=== PATIENT | male | born 1950 | race Caucasian/White ===

== ENCOUNTER 2020-02-22 10:12 | Emergency (ER) | payer MEDICARE, MEDICAID, SELFPAY ==
[2020-02-22 10:16] VITALS: BP 115/89; PULSE 99; RESP 16; TEMP 36.8; O2SAT 100; BMI 22.2
[2020-02-22 10:36] VITALS: O2SAT 100
--- NOTE | 2020-02-22 10:51 | XR_ITS ---
WS: [id number] PORTABLE CHEST HISTORY: dyspnea COMPARISON: 02/19/2017 Prior CABG. LEFT subclavian defibrillator. Hyperinflated lungs with changes of emphysema. Increasing opacification in the RIGHT lower lobe. Smal l bilateral pleural effusions. Cardiac size: Moderately enlarged cardiac silhouette. Mediastinum/Aorta: Mild atherosclerosis aorta. Osteopenia. XR/XR chest 1V portable [id number] IMPRESSION: 1. Chronic emphysema with developing RIGHT lower lobe pneumonitis or pneumonia . 2. Small bilateral pleural effusions. 3. Moderate cardiomegaly.
[2020-02-22 11:00] LABS: Basophils % 0.4 %; Eosinophils # 0.1 10^3/uL (0.0-0.8); Eosinophils % 0.6 %; Hematocrit 43.5 % (42.0-52.0); Hemoglobin 13.1 g/dL (11.7-16.6); Mean Corpuscular HGB Conc 30.1 g/dL (30.0-36.0); Mean Corpuscular Hemoglobin 28.8 pg (28.0-34.0); Mean Corpuscular Volume 95.6 fL (80-94); Mean Platelet Volume 12.3 fL (7.4-10.4); Monocytes # 1.1 10^3/uL (0.2-0.9); Monocytes % 11.1 %; Neutrophils # 7.62 10^3/uL (1.8-7.7); Neutrophils % 77.4 %; Nucleated Red Blood Cells % 0.2 %; Platelet Count 138 10^3/cmm (130-400); Red Blood Count 4.55 10^6/uL (4.1-5.3); White Blood Count 9.8 10^3/uL (4.0-10.0)
[2020-02-22 11:08] LABS: Alanine Aminotransferase 651 U/L (0-41); Albumin Level 4.4 g/dL (3.5-5.2); Alkaline Phosphatase 95 IU/L (40-130); Anion Gap 19.8 (5-19); Aspartate Amino Transferase 129 U/L (0-40); Blood Urea Nitrogen 36 mg/dL (8-23); Calcium 8.8 mg/dL (8.5-10.5); Carbon Dioxide 22 mmol/L (22-29); Chloride 99 mmol/L (98-107); Globulin 2.6 g/dL (1.3-4.6); Glomerular Filtration Rate 46.4 mL/min (90-130); Glucose 118 mg/dL (65-115); Osmolality Calculated 293 mOsm/kg (285-295); Potassium 3.8 mmol/L (3.5-5.1); Sodium 137 mmol/L (136-145)
--- NOTE | 2020-02-22 11:17 | W.ED.SOB ---
HPI - SOB/Dyspnea General: Chief Complaint: Shortness of Breath/Dyspnea Stated Complaint: SOB Time Seen by Provider: 02/22/20 10:28 History of Present Illness: HPI Narrative: 69-year-old male presents to the emergency room with difficulty with breathing. Patient has a history of congestive heart failure due to ischemic cardiomyopathy. He usually is on oxygen at 3 L by nasal cannula at home. On arrival here on 3 L he has been maintaining his sats in the mid to upper 90s. He did use 2 puffs of an albuterol inhaler as well as given been given terbutaline in the field his symptoms are mostly resolved. He has not had a fever had a few loose stools a few days ago. He has not noticed any worsening orthopnea. MD elicited complaint: shortness of breath and cough Pertinent past history: COPD and congestive heart failure Onset (ago): hour(s) Timing: constant Severity: moderate Exacerbating factors: exertion and coughing Relieving factors: oxygen, rest and bronchodilators Known history of: COPD and congestive heart failure Associated symptoms: Reports chest congestion, cough and orthopnea (Unchanged from baseline); Deny abdominal pain, chest pain, diaphoresis, dizziness, extremity pain, fever(s), hemoptysis, lightheadedness, myalgias, nausea, palpitations, paresthesias, polydipsia, polyuria, rash, sense of impending doom, syncope or vomiting Treatment prior to arrival: oxygen, bronchodilator and other (Steroids) Review of Systems Const: Denies: fever(s) or diaphoresis ENMT: Denies: throat pain, ear or mastoid pain, nasal discharge or nasal congestion Card: Reports: orthopnea (Unchanged from baseline); Denies: chest pain, palpitations, lightheadedness or syncope Resp: Reports: chest congestion; Denies: hemoptysis GI: Denies: abdominal pain, nausea or vomiting : Denies: flank pain, dysuria, urinary frequency or urinary urgency Musc: Denies: extremity pain Skin/Breast: Denies: rash or pruritus Neuro: Denies: dizziness Endo: Denies: polyuria or polydipsia PFS ED PFSH: Medical History Atrial fibrillation Combined systolic and diastolic congestive heart failure Coronary artery disease History of ST elevation myocardial infarction (STEMI) HTN (hypertension) ICD (implantable cardioverter-defibrillator) in place Ischemic cardiomyopathy Seizure disorder Sleep apnea Surgical History S/P appendectomy S/P CABG (coronary artery bypass graft) S/P hernia repair S/P PTCA (percutaneous transluminal coronary angioplasty) Family History Mother Cancer Other CAD (coronary artery disease) Social History Smoking and tobacco status: former smoker Second hand smoke exposure: Yes Alcohol intake: never History of recent travel: No Physical Exam Const: COMMON NORMALS: no acute distress GENERAL APPEARANCE: cooperative and comfortable ORIENTATION/CONSCIOUSNESS: Yes awake, Yes oriented to person, Yes oriented to place and Yes oriented to time HENMT: COMMON NORMALS: normocephalic, atraumatic and hearing grossly normal bilaterally HEAD & SCALP: normocephalic and atraumatic Neck/C-Spine: COMMON NORMALS: no JVD Resp: COMMON NORMALS: normal respiratory effort, No retractions, No use of accessory muscles and clear to auscultation bilaterally AUSCULTATION: clear to auscultation bilaterally Cardio: COMMON NORMALS: no JVD, regular rate, regular rhythm and No murmurs present (Cardio) RATE: regular rate RHYTHM: regular rhythm GI: COMMON NORMALS: Soft to palpation and No hepatosplenomegaly present AUSCULTATION: Yes normoactive bowel sounds PALPATION: Yes Soft to palpation, No Tenderness to palpation present (GI), No Guarding due to palpation present (GI) and Yes No hepatosplenomegaly present Extremity: COMMON NORMALS: normal to inspection, capillary refill normal, no clubbing, cyanosis or edema, no calf tenderness and no pedal edema Neuro: SENSORIUM/ORIENTATION: Yes oriented to person, Yes oriented to place and Yes oriented to time Skin: COMMON NORMALS: no rashes or lesions noted GENERAL SKIN EXAM: no rashes or lesions noted Course Vital Signs: Vital signs: Vital Signs Temperature 98.2 F 02/22/20 10:16 Pulse Rate 99 02/22/20 10:16 Respiratory Rate 16 02/22/20 10:16 Blood Pressure 115/89 02/22/20 10:16 Pulse Oximetry 100 02/22/20 10:36 MDM - SOB/Dyspnea MDM Narrative: Medical decision making narrative: Reviewing the work-up. Patient is actually hyper oxygenated on his current level will decrease that dose will start him on Levaquin as well as dexamethasone continue albuterol and we will set him up for telehealth/phone visit tomorrow for follow-up return to the emergency room if he has further problems. O2 sat monitor given to monitor his sats advised him to return if he is consistently below 90% Lab Data: Labs: Lab Results 02/22/20 02/22/20 02/22/20 Range/Units 09:35 09:35 11:45 WBC 9.8 (4.0-10.0) 10^3/ uL RBC 4.55 (4.1-5.3) 10^6/u L Hgb 13.1 (11.7-16.6) g/dL Hct 43.5 (42.0-52.0) % MCV 95.6 H (80-94) fL MCH 28.8 (28.0-34.0) pg MCHC 30.1 (30.0-36.0) g/dL RDW 18.0 H (12.1-15.1) % Plt Count 138 (130-400) 10^3/c mm MPV 12.3 H (7.4-10.4) fL Neut % (Auto) 77.4 % Lymph % (Auto) 10.0 % [place] % (Auto) 11.1 % Eos % (Auto) 0.6 % Baso % (Auto) 0.4 % Neut # (Auto) 7.62 (1.8-7.7) 10^3/u L Lymph # (Auto) 1.0 (0.8-4.8) 10^3/u L [place] # (Auto) 1.1 H (0.2-0.9) 10^3/u L Eos # (Auto) 0.1 (0.0-0.8) 10^3/u L Baso # (Auto) 0.0 (0.0-0.1) 10^3/u L Nucleated RBC % (a uto) 0.2 % Nucleated RBCs # 0.0 /100WBC Specimen Type Arterial Sample Site Radial, right ABG pH 7.44 (7.35-7.45) ABG pCO2 34.4 L (35-45) mmHg ABG pO2 172.0 H (80.0-100.0) mmH g ABG HCO3 23.3 (22-26) mmol/L ABG O2 Saturation > 100.0 ABG Base Excess -0.5 (-2.0-2.0) mmol/ L Kendrick Test Pos A-a O2 Gradient Not Reportable Hematocrit 37.8 L (42-52) % Hgb O2 Saturation 98.6 (95-100) % Carboxyhemoglobin 1.5 (0.4-20.1) %THgb Methemoglobin 0.5 (0.4-1.5) % Total Hemoglobin 12.3 L (14-18) g/dL Ionized Calcium 1.1 (1.1-1.4) mmol/L O2 Delivery Device Nc O2 Liters/Min 3.0 % Editorial Cartoonist ID Broma Sodium 137 137.0 (136-145) mmol/L Potassium 3.8 3.5 (3.5-5.1) mmol/L Chloride 99 (98-107) mmol/L Carbon Dioxide 22 (22-29) mmol/L Anion Gap 19.8 H (5-19) BUN 36 H (8-23) mg/dL Creatinine 1.5 H (0.7-1.2) mg/dL GFR Calculation 46.4 L (90-130) mL/min Glucose 118 H 118.0 H (65-115) mg/dL Calculated Osmolal ity 293 (285-295) mOsm/k g Calcium 8.8 (8.5-10.5) mg/dL Total Bilirubin 2.0 H (0.15-1.2) mg/dL AST 129 H (0-40) U/L ALT 651 H (0-41) U/L Alkaline Phosphata se 95 (40-130) IU/L Total Protein 7.0 (6.6-8.7) g/dL Albumin 4.4 (3.5-5.2) g/dL Globulin 2.6 (1.3-4.6) g/dL Discharge Plan Discharge Patient Disposition: Home Clinical Impression: Community acquired pneumonia, Congestive heart failure, Acute exacerbation of chronic obstructive airways disease, Atrial fibrillation, Ischemic cardiomyopathy Condition: Stable Prescriptions: New dexamethasone 6 mg tablet 6 mg PO DAILY Qty: 7 RF: 0 levofloxacin 750 mg tablet 750 mg PO DAILY 7 Days Qty: 7 RF: 0 No Action albuterol sulfate [ProAir HFA] 90 mcg/actuation HFA aerosol inhaler 2 puff INHALATION Q6H PRNRF: 0 simvastatin 40 mg tablet 40 mg PO QDAY RF: 0 mirtazapine 15 mg tablet 15 mg PO QDAY RF: 0 clopidogrel [Plavix] 75 mg tablet 75 mg PO QDAY RF: 0 nitroglycerin [Nitrostat] 0.4 mg tablet, sublingual 0.4 mg SUBLINGUAL DIRECTED RF: 0 furosemide [Lasix] 20 mg tablet 40 mg PO QAM RF: 0 potassium chloride [Klor-Con M20] 20 mEq tablet,ER particles/crystals 10 meq PO QDAY RF: 0 aspirin 325 mg tablet 325 mg PO DAILY RF: 0 budesonide-formoterol 160-4.5 mcg/actuation HFA aerosol inhaler 2 puff INHALATION BID RF: 0 Narcan 4 mg/actuation spray,non-aerosol 4 mg INTRANASAL Q2M RF: 0 hydrocodone-acetaminophen 5-325 mg tablet 1 tab PO BID PRNRF: 0 ondansetron HCl 4 mg tablet 4 mg PO Q6H RF: 0 metoprolol succinate 25 mg tablet extended release 24 hr 12.5 mg PO BID RF: 0 Discharge Orders: Discharge Order (Routine); Ordered 02/22/20 Ordered By: Omar Garcia Referrals: Earl Crow [Primary Care Provider] - Discharge Diet: Usual diet Discharge Activity: Resume usual activity Activity Restrictions/Additional Instructions: Monitor blood oxygen saturations at home with the finger monitor given you in the emergency room today if you are consistently below 90% return to the emergency room continue to wear your 3 L/min of nasal cannula oxygen daily. You were started on dexamethasone for 1 week as well as Levaquin. You should follow-up with the doctor either by telehealth or phone conversation tomorrow. Coding Level of Care Code ED Joinery Machinist for Krz[employer]zto[employer] Fwd Exam Comprehensive
[2020-02-22 12:00] LABS: ABG PCO2 34.4 mmHg (35-45); ABG PH Result 7.44 (7.35-7.45); Arterial Blood Gas Hematocrit 37.8 % (42-52); Base Excess ABG -0.5 mmol/L (-2.0-2.0); Blood Gas Allen Test Pos; Blood Gas Operator Identificat BROMA; Blood Gas Sample Site Radial, right; Blood Gas Sample Type Arterial; Carboxyhemoglobin 1.5 %THgb (0.4-20.1); HCO3 ABG 23.3 mmol/L (22-26); HGB O2 Sat 98.6 % (95-100); Ionized Calcium Level - ABG 1.1 mmol/L (1.1-1.4); Methemoglobin 0.5 % (0.4-1.5); Oxygen Device NC; Oxygen Saturation ABG > 100.0; Potassium Level - ABG 3.5 mmol/L (3.5-5.0); Total Hemoglobin 12.3 g/dL (14-18)
[2020-02-22 12:07] VITALS: BP 112/89; PULSE 91; O2SAT 99
[2020-02-24 14:43] LABS: Quest SARS-CoV-2 RNA NOT DETECTED (NOT DETECTED)
--- NOTE | 2020-02-25 16:26 | PC.NURSE ---
Pt called and notified of negative COVID result.
== END 2020-02-22 12:56 | disposition home or self-care (01) ==
PROVIDERS: Emergency Provider Family Medicine; PCP Family Medicine
DX: J44.0 Chronic obstructive pulmonary disease with (acute) lower respiratory infection (principal); J16.8 Pneumonia due to other specified infectious organisms; J44.1 Chronic obstructive pulmonary disease with (acute) exacerbation; I11.0 Hypertensive heart disease with heart failure; I50.9 Heart failure, unspecified; I48.91 Unspecified atrial fibrillation; I25.5 Ischemic cardiomyopathy; Z79.02 Long term (current) use of antithrombotics/antiplatelets; Z79.82 Long term (current) use of aspirin; Z87.891 Personal history of nicotine dependence; I25.10 Atherosclerotic heart disease of native coronary artery without angina pectoris; I25.2 Old myocardial infarction; Z95.1 Presence of aortocoronary bypass graft
CPT/HCPCS: 12345; 36600; 71045; 80051; 80053; 82810; 83986; 85025; 87635; 99283

== ENCOUNTER 2020-03-22 20:52 | Inpatient (IN) | payer MEDICARE, MEDICAID, SELFPAY ==
--- NOTE | 2020-03-22 20:54 | XR_ITS ---
WS: [id number] XR chest 1V portable [id number] REASON FOR EXAM: cp FINDINGS: Compared to the previous examination of 02/22/2020, the findings of chronic congestive heart failure s een with fluid in the minor fissure, bilateral pleural effusions, and Patti B lines. The infiltrative process seen in the periphery of the right lower lung field is resolving. No new findings. XR/XR chest 1V portable [id number] IMPRESSION: Chronic congestive heart failure with resolving right lower lobe infiltrate.
--- NOTE | 2020-03-22 20:55 | ECG_ITS ---
[facility] Test Date: 2020-03-22 Pat Name: Nolan Jurado Department: Room: 107 Gender: Male Heat Treat Technician: : 1950 Requested By: Petros Davis Order Number: [id number] Reading MD: SHANELLE MCLAUGHLIN Measurements Intervals [place] Rate: 115 P: 34 CA: 145 QRS: 62 QRSD: 110 T: 161 QT: 355 QTc: 491 Interpretive Statements SINUS TACHYCARDIA POSSIBLE LEFT ATRIAL ENLARGEMENT [-0.1mV P WAVE IN V1/V2] MINIMAL ST DEPRESSION [0.025+ mV ST DEPRESSION] ABNORMAL QRS-T ANGLE [QRS-T AXIS DIFFERENCE > 60] Compared to ECG 01/26/2017 18:20:20 ST (T wave) deviation now present Sinus rhythm no longer present Intraventricular conduction delay no longer present Electronically Signed On 03-23-2020 19:29:18 QUARRY PLUG AND FEATHER DRILLER by SHANELLE MCLAUGHLIN [id number]
[2020-03-22 20:56] VITALS: BP 115/89; PULSE 115; RESP 20; TEMP 37.1; O2SAT 100; BMI 21.5
[2020-03-22 21:00] VITALS: PULSE 122; RESP 18; O2SAT 99
--- NOTE | 2020-03-22 21:15 | ED_ITS ---
HPI - SOB/Dyspnea General: Chief Complaint: Shortness of Breath/Dyspnea Stated Complaint: d/a chest pain Time Seen by Provider: 03/22/20 20:53 Source: patient Mode of arrival: ambulatory Limitations: no limitations History of Present Illness: HPI Narrative: 69-year-old male who is a direct admit from [facility]. In route EMS stated he started having chest pain shortness of breath. The ER. Patient states he feels much improved currently no longer has any chest pain at this time. Does have a extensive history of congestive heart failure is edematous. Patient denies any vomiting or diarrhea. Associated symptoms: Reports chest pain; Deny abdominal pain, fever(s), nausea or vomiting Review of Systems Const: Denies: fever(s), chills, body aches or change in appetite Eyes: Denies: blurry vision or eye discomfort ENMT: Denies: throat pain or dental pain Card: Reports: chest pain Resp: Reports: dyspnea GI: Denies: abdominal pain, nausea, vomiting or diarrhea : Denies: dysuria Musc: Denies: neck pain or back pain Skin/Breast: Denies: rash Neuro: Denies: headache(s) Psych: Denies: depression Remigio/Lymph: Denies: easy bruising All/Imm: Denies: urticaria PFSH ED PFSH: Medical History Atrial fibrillation Combined systolic and diastolic congestive heart failure Coronary artery disease History of ST elevation myocardial infarction (STEMI) HTN (hypertension) ICD (implantable cardioverter-defibrillator) in place Ischemic cardiomyopathy Seizure disorder Sleep apnea Surgical History S/P appendectomy S/P CABG (coronary artery bypass graft) S/P hernia repair S/P PTCA (percutaneous transluminal coronary angioplasty) Family History Mother Cancer Other CAD (coronary artery disease) Social History Smoking and tobacco status: former smoker Second hand smoke exposure: Yes Alcohol intake: never History of recent travel: No Physical Exam Const: COMMON NORMALS: no acute distress, patient oriented x3 and healthy appearing HENMT: COMMON NORMALS: normocephalic and atraumatic HEAD & SCALP: normocephalic and atraumatic Eye: COMMON NORMALS: Equal, round and reactive pupils present and EOMs intact bilaterally PUPIL: Yes Equal, round and reactive pupils present Neck/C-Spine: COMMON NORMALS: full ROM and supple Chest: COMMONS NORMALS: normal inspection of the chest and normal palpation of entire chest wall Resp: COMMON NORMALS: normal respiratory effort, No retractions, No use of accessory muscles and clear to auscultation bilaterally AUSCULTATION: clear to auscultation bilaterally Cardio: COMMON NORMALS: regular rate, regular rhythm and No murmurs present (Cardio) RATE: regular rate RHYTHM: regular rhythm GI: COMMON NORMALS: Normal to inspection, nondistended, normoactive bowel sounds present, Soft to palpation, non-tender and no masses PALPATION: Yes Soft to palpation Extremity: COMMON NORMALS: normal to inspection and full ROM NARRATIVE EXTREMITY EXAM: 2+ edema Neuro: COMMON NORMALS: patient oriented x3, moves all extremities and no focal motor deficits Psych: COMMON NORMALS: mental status grossly normal, Normal thought process present and cooperative THOUGHT PROCESS: Normal thought process present Skin: COMMON NORMALS: no rashes or lesions noted and no wounds GENERAL SKIN EXAM: no rashes or lesions noted Course Vital Signs: Vital signs: Vital Signs Temperature 98.8 F 03/22/20 20:56 Pulse Rate 115 H 03/22/20 20:56 Respiratory Rate 20 H 03/22/20 20:56 Blood Pressure 115/89 03/22/20 20:56 Pulse Oximetry 100 03/22/20 20:56 MDM - SOB/Dyspnea EKG Data^: EKG 1: Attestation: I personally reviewed and interpreted this EKG as follows: EKG Interpretation Date: 03/22/20 EKG interpretation time: 20:53 Interpretation: sinus tach hr [address] or t wave abnormalities qrs 110 qtc 423 Discharge Plan Discharge Prescriptions: No Action albuterol sulfate [ProAir HFA] 90 mcg/actuation HFA aerosol inhaler 2 puff INHALATION Q6H PRNRF: 0 simvastatin 40 mg tablet 40 mg PO QDAY RF: 0 mirtazapine 15 mg tablet 15 mg PO QDAY RF: 0 clopidogrel [Plavix] 75 mg tablet 75 mg PO QDAY RF: 0 nitroglycerin [Nitrostat] 0.4 mg tablet, sublingual 0.4 mg SUBLINGUAL DIRECTED RF: 0 furosemide [Lasix] 20 mg tablet 40 mg PO QAM RF: 0 potassium chloride [Klor-Con M20] 20 mEq tablet,ER particles/crystals 10 meq PO QDAY RF: 0 aspirin 325 mg tablet 325 mg PO DAILY RF: 0 budesonide-formoterol 160-4.5 mcg/actuation HFA aerosol inhaler 2 puff INHALATION BID RF: 0 Narcan 4 mg/actuation spray,non-aerosol 4 mg INTRANASAL Q2M RF: 0 hydrocodone-acetaminophen 5-325 mg tablet 1 tab PO BID PRNRF: 0 ondansetron HCl 4 mg tablet 4 mg PO Q6H RF: 0 metoprolol succinate 25 mg tablet extended release 24 hr 12.5 mg PO BID RF: 0 dexamethasone 6 mg tablet 6 mg PO DAILY Qty: 7 RF: 0 Coding Level of Care Code ED All Terrain Vehicle Technician for [place]ly[place] Fwd Exam Comprehensive
[2020-03-22 22:00] VITALS: PULSE 120; RESP 22; O2SAT 98
--- NOTE | 2020-03-22 22:28 | P.HP_ITS ---
Providers/Chief Complaint Primary Care Provider: Earl Crwo Chief Complaint: d/a chest pain History of Present Illness Nolan Jurado is a 69 year old male with a past medical history of CAD status post CABG, history of ICD placement, history of ischemic cardiomyopathy, mixed systolic and diastolic heart failure, last ejection fraction 30%, COPD, former smoker hypertension, hyperlipidemia, bilateral lower extremity edema, paroxysmal atrial fibrillation not on anticoagulation, sleep apnea, who presents to [facility] as a transfer from [facility] for complaints of shortness of breath. Patient states that for the last 2 weeks, he has felt more short of breath, short of breath with minimal exertion, productive cough, complains of bilateral lower extremity edema, orthopnea, paroxysmal nocturnal dyspnea, has been using Lasix 40 mg daily, also complains of chest pain with exertion, substernal, nonradiating, no fevers, no chills, no nausea, no vomiting, no known exposure to COVID-19. Review of Systems Const: Denies: fever(s), chills, fatigue or malaise Eyes: Denies: change in vision or blurry vision ENMT: Denies: nasal congestion Card: Reports: chest pain Resp: Reports: dyspnea and non-productive cough; Denies: productive cough or wheezing GI: Denies: abdominal pain, nausea, vomiting, hematemesis, diarrhea, constipation, hematochezia or melena : Denies: flank pain, difficulty urinating, dysuria or urinary frequency Musc: Denies: neck pain or back pain Skin/Breast: Denies: rash Neuro: Denies: headache(s), dizziness or vertigo Psych: Denies: anxiety or depression Endo: Denies: polyuria or polydipsia Medications/Allergies Home Medications Medication Instructions Recorded Confirmed Last Taken Type albuterol sulfate 90 mcg/actuation 2 puff INHALATION Q6H PRN 06/14/19 12/12/19 Unknown History aerosol inhaler clopidogrel 75 mg tablet 75 mg PO QDAY 06/14/19 12/12/19 Unknown History mirtazapine 15 mg tablet 15 mg PO QDAY 06/14/19 12/12/19 Unknown History nitroglycerin 0.4 mg sublingual 0.4 mg SUBLINGUAL DIRECTED tab 06/14/19 12/12/19 Unknown History tablet simvastatin 40 mg tablet 40 mg PO QDAY 06/14/19 12/12/19 Unknown History aspirin 325 mg tablet 325 mg PO DAILY 09/30/19 12/12/19 Unknown History budesonide-formoterol HFA 160 2 puff INHALATION BID 09/30/19 12/12/19 Unknown History mcg-4.5 mcg/actuation aerosol inhaler furosemide 20 mg tablet 40 mg PO QAM tab 09/30/19 12/12/19 Unknown History hydrocodone 5 mg-acetaminophen 325 1 tab PO BID PRN 09/30/19 12/12/19 Unknown History mg tablet metoprolol succinate 25 mg 12.5 mg PO BID tab 09/30/19 12/12/19 Unknown History tablet,extended release 24 hr naloxone 4 mg/actuation nasal spray 4 mg INTRANASAL Q2M 09/30/19 12/12/19 Unknown History ondansetron HCl 4 mg tablet 4 mg PO Q6H 09/30/19 12/12/19 Unknown History potassium chloride 20 mEq 10 meq PO QDAY tab 09/30/19 12/12/19 Unknown History tablet,extended release(part/cryst) dexamethasone 6 mg PO DAILY #7 tab 02/22/20 Unknown Rx Allergies Allergy/AdvReac Type Severity Reaction Status Date / Time No Known Allergies Allergy Unverified 06/14/19 09:54 PFSH Acute PFSH: Medical History Atrial fibrillation Combined systolic and diastolic congestive heart failure Coronary artery disease History of ST elevation myocardial infarction (STEMI) HTN (hypertension) ICD (implantable cardioverter-defibrillator) in place Ischemic cardiomyopathy Seizure disorder Sleep apnea Surgical History S/P appendectomy S/P CABG (coronary artery bypass graft) S/P hernia repair S/P PTCA (percutaneous transluminal coronary angioplasty) Family History Mother Cancer Other CAD (coronary artery disease) Social History Smoking and tobacco status: former smoker Second hand smoke exposure: Yes Alcohol intake: never History of recent travel: No Vitals/I&O/Wt Last Vital Signs Temp 98.8 F 03/22/20 20:56 Pulse 115 H 11/05/20 20:56 Resp 20 H 03/22/20 20:56 BP 115/89 03/22/20 20:56 Pulse Ox 100 03/22/20 20:56 Weight last 48 hrs Weight 68.039 kg Physical Exam Const: COMMON NORMALS: no acute distress and patient oriented x3 GENERAL APPEARANCE: cooperative and comfortable HENMT: COMMON NORMALS: normocephalic HEAD & SCALP: normocephalic Eye: COMMON NORMALS: Equal, round and reactive pupils present and EOMs intact bilaterally GENERAL EYE: appearance normal, both eyes and all related structures PUPIL: Yes Equal, round and reactive pupils present Neck/C-Spine: COMMON NORMALS: full ROM, no lymphadenopathy, no JVD and Thyroid normal THYROID: Thyroid normal Lymph: LYMPHATIC: no lymphadenopathy noted Resp: COMMON NORMALS: normal respiratory effort, No retractions, No use of accessory muscles and clear to auscultation bilaterally AUSCULTATION: clear to auscultation bilaterally Cardio: COMMON NORMALS: no JVD, regular rate, regular rhythm, S1 normal heart sound present, S2 normal heart sound present, No gallops present (Cardio), No clicks present (Cardio) and No murmurs present (Cardio) RATE: regular rate RHYTHM: regular rhythm HEART SOUNDS: S1 normal heart sound present and S2 normal heart sound present GI: COMMON NORMALS: Normal to inspection, nondistended, normoactive bowel sounds present, Soft to palpation, non-tender and No hepatosplenomegaly present PALPATION: Yes Soft to palpation and Yes No hepatosplenomegaly present Extremity: COMMON NORMALS: normal to inspection and full ROM NARRATIVE EXTREMITY EXAM: 3+ pitting edema Neuro: COMMON NORMALS: patient oriented x3, CN's II-XII intact bilaterally, moves all extremities and no focal motor deficits Psych: COMMON NORMALS: mental status grossly normal, Normal thought process present and cooperative THOUGHT PROCESS: Normal thought process present Data : 03/22/20 22:15 03/22/20 22:15 A&P Assessment and plan (1) Combined systolic and diastolic congestive heart failure: -Has a history of ischemic ischemic cardiomyopathy, mixed systolic and diastolic, last EF 30% -, No pulmonary emboli -Has received a total of [address] angiogram of the chest and chest x- ray from outside hospital showed pulmonary edema PLAN: -Admit to cardiac stepdown unit -Telemetry monitoring -Monitor creatinine, continue Lasix 40 mg IV twice daily, fluid restrictions, daily weights -We will order cardiac echocardiogram Status: Acute (2) COPD (chronic obstructive pulmonary disease): -3 L oxygen dependent -Continue ipratropium every 6 hours scheduled -Continue Solu-Medrol 40 every 12 hours Status: Acute (3) ICD (implantable cardioverter-defibrillator) in place: Status: Acute (4) Atrial fibrillation: -Paroxysmal atrial fibrillation, not on anticoagulation, telemetry monitoring ordered Status: Acute (5) Pneumonia: -CT angiogram showed findings concerning for left lower lobe pneumonia, white blood cell 12.6, Covid PCR sent, influenza negative -Continue Rocephin and azithromycin -Blood cultures, sputum cultures Status: Acute (6) NSTEMI (non-ST elevated myocardial infarction): -Has complaints of chest pain -Troponin at [facility] was 65, 2 hour 57, EKG at their facility showed sinus tachycardia, in the ambulance ride over, there was some concerns for an abnormal heart rhythm, seem like sinus tachycardia to me, EKG went he arrived in the emergency room showed some ST depressions in the lateral leads, no active chest pain PLAN: -Continue aspirin, statin -Serial EKGs, serial troponins, telemetry monitoring, monitor for EKGs, ordered cardiac echocardiogram Status: Acute (7) Hypertension: Status: Acute (8) Hyperlipidemia: Status: Acute Attestations Medical Necessity Statement*: Patient requires hospitalization, inpatient, greater than 2 midnights, for systolic diastolic heart failure exacerbation, pneumonia, COPD exacerbation Coding Level of Care Code Acute Franchise Manager for [facility] Diagnoses Combined systolic and diastolic congestive heart failure I50.40 COPD (chronic obstructive pulmonary disease) J44.9 ICD (implantable cardioverter-defibrillator) in place Z95.810 Atrial fibrillation I48.91 Pneumonia J18.9 NSTEMI (non-ST elevated myocardial infarction) I21.4 Hypertension I10 Hyperlipidemia E78.5
[2020-03-22 22:32] LABS: Basophils % 0.1 %; Eosinophils % 0.2 %; Hematocrit 42.1 % (42.0-52.0); Hemoglobin 12.2 g/dL (11.7-16.6); Lymphocytes # 0.9 10^3/uL (0.8-4.8); Lymphocytes % 7.7 %; Mean Corpuscular Hemoglobin 26.9 pg (28.0-34.0); Mean Corpuscular Volume 92.9 fL (80-94); Mean Platelet Volume 9.9 fL (7.4-10.4); Monocytes # 1.1 10^3/uL (0.2-0.9); Monocytes % 9.7 %; Neutrophils # 8.97 10^3/uL (1.8-7.7); Neutrophils % 81.8 %; Nucleated Red Blood Cells % 0.4 %; Platelet Count 198 10^3/cmm (130-400); Red Blood Count 4.53 10^6/uL (4.1-5.3); Red Cell Distribution Width 18.4 % (12.1-15.1)
[2020-03-22 22:53] VITALS: BP 100/73; PULSE 104; RESP 23; O2SAT 100
[2020-03-22 22:53] LABS: Troponin(5th) Baseline 59 ng/L (0-15)
--- NOTE | 2020-03-22 22:55 | ECG_ITS ---
[facility] Test Date: 2020-03-22 Pat Name: Nolan Jurado Department: Room: 107 Gender: Male Sedimentationist: : 1950 Requested By: Petros Davis Order Number: [id number] Reading MD: SHANELLE MCLAUGHLIN Measurements Intervals [place] Rate: 106 P: 73 MD: 154 QRS: 77 QRSD: 110 T: 180 QT: 374 QTc: 497 Interpretive Statements SINUS TACHYCARDIA WITH OCCASIONAL VENTRICULAR PREMATURE COMPLEXES LEFT ATRIAL ENLARGEMENT [-0.15mV P WAVE IN V1/V2] NONSPECIFIC ST & T-WAVE ABNORMALITY Compared to ECG 01/26/2017 18:20:20 Ventricular premature complex(es) now present T-wave abnormality now present Sinus rhythm no longer present Intraventricular conduction delay no longer present Electronically Signed On 03-23-2020 19:33:43 MATERIAL CLERK by SHANELLE MCLAUGHLIN [id number]
[2020-03-22 23:03] LABS: Magnesium 2.4 mg/dL (1.7-2.3); NT Pro B Type Natriuretic Pept 31539 pg/mL (0-125); Phosphorus 3.4 mg/dL (2.5-4.5)
[2020-03-22 23:22] VITALS: PULSE 76; RESP 29
[2020-03-22 23:27] LABS: Alanine Aminotransferase 31 U/L (0-41); Albumin Level 3.3 g/dL (3.5-5.2); Alkaline Phosphatase 113 IU/L (40-130); Aspartate Amino Transferase 38 U/L (0-40); Blood Urea Nitrogen 37 mg/dL (8-23); Calcium 8.9 mg/dL (8.5-10.5); Carbon Dioxide 22 mmol/L (22-29); Chloride 99 mmol/L (98-107); Globulin 2.7 g/dL (1.3-4.6); Glucose 103 mg/dL (65-115); Osmolality Calculated 291 mOsm/kg (285-295); Sodium 136 mmol/L (136-145); Total Bilirubin 1.9 mg/dL (0.15-1.2)
--- NOTE | 2020-03-22 23:31 | PC.NURSE ---
Patient received from ED via stretcher. Transferred patient to bed x2 assist. Patient tolerated fair. Patient becomes very SOB with any exertion. Noted patient to have blanchable redness to sacrum. Positioned for comfort. Patient requesting to remain in semi-dumont's position for ease of breathing. Patient stated, I want to go to sleep but I am afraid I will wake up starving for air. Patient reports using cpap with oxygen at home. Informed Dr Weaver of patient fear and use of cpap. Order received to initiate cpap with home settings for now. Spoke with David in respiratory and informed her of new order. Admission completed as documented.
[2020-03-22 23:34] LABS: Anion Gap 19.3 (5-19); Potassium 4.3 mmol/L (3.5-5.1)
[2020-03-22 23:45] VITALS: PULSE 120; RESP 28; O2SAT 98
[2020-03-23] VITALS (7 sets, daily range): BP systolic 93–116; BP diastolic 27–94; PULSE 109–173; RESP 0–32; O2SAT 66–100
--- NOTE | 2020-03-23 00:07 | PC.NURSE ---
report to [facility] for telemetry floor
[2020-03-23 00:09] LABS: Procalcitonin 0.97 ng/mL (0-0.5)
[2020-03-23] MEDS: atorvastatin 40 mg Tablet PO (00:37)
[2020-03-23] MEDS: aspirin 81 mg EC Tablet PO (00:37)
[2020-03-23] MEDS: mirtazapine 15 mg Tablet PO (00:37)
[2020-03-23] MEDS: clopidogrel 75 mg Tablet PO (00:37)
[2020-03-23] MEDS: cefTRIAXone 1,000 MG in sodium chloride 0.9% (plus) 50 ML 100 MG IV (00:38)
[2020-03-23] MEDS: azithromycin 500 MG in sodium chloride 0.9% 250 ML 250 MG IV (01:37)
[2020-03-23] MEDS: ondansetron 2 mg/ML SDV 2 mL 4 MG IVP (02:10)
--- NOTE | 2020-03-23 02:14 | PC.NURSE ---
Patient c/o right wrist IV painful with flush. No sign of infiltration observed. Flushed left AC IV and patient c/o pain and burning to that site as well. Did observed some infiltration to the left ac. Both IV removed. Initiated new IV to right forearm 22g. Flushes well. Patient denies pain to site at this time and tolerated insertion well.
[2020-03-23 02:42] LABS: Bilirubin Urine Neg (Negative); Blood Urine Neg (Negative); Glucose Urine UA Norm (Normal); Ketones Urine Negative (Negative); Leukocyte Esterase Urine Negative (Negative); Nitrate Urine Negative (Negative); Protein Urine Neg (Negative); Specific Gravity, Urine 1.015 (1.005-1.030); Urine Appearance Clear (CLEAR); Urine Color Yellow (Yellow); Urobilinogen Urine 1 mg/dL (Negative)
[2020-03-23 02:43] LABS: Add Urine Culture? No; Add Urine Microscopic? YES; Bacteria Urine TRACE /hpf; WBC Urine 0-4 /hpf (0-5)
[2020-03-23] MEDS: FUROsemide 10 mg/mL SDV 4mL 40 MG IVP (02:50)
--- NOTE | 2020-03-23 03:52 | PC.NURSE ---
0235. Patient c/o not being able to breathe. Patient had oxymask at 5L with SpO2 of 100% heart rate 100. Informed David in RT. David in to see patient. 0237 Patient heart increased to 130-140. Patient c/o difficulty breathing with respirations at 30-35. Patient oxymask increased to 10L with SpO2 remaining at 100% Informed Dr Weaver at this time. While on the phone with doctor heart rate decreased back to 100, respirations remained in the 30s. Received order for Lasix 40mg IVP once. 0247 Patient c/o air hunger and unable to breathe stating I am hot and I can't breathe . Decreased room temperature. David RT in room. Patient breathing becoming more labored. Texting Dr Weaver at this time requesting assistance with air hunger. Also texted doctor at this time that rapid response was going to be called. While calling [id number], Dr Weaver enters room. Patient stopped breathing. Patient has pulse at this time. 0248 Rapid response called. 0250 Code blue called. Code team arrived and assumed care of patient. See Code paperwork for team information. Patient was coded for ~40min before TOD was called.
--- NOTE | 2020-03-23 04:43 | ED_ITS ---
HPI - SOB/Dyspnea General: Chief Complaint: Shortness of Breath/Dyspnea Stated Complaint: d/a chest pain Time Seen by Provider: 03/22/20 20:53 Source: patient Mode of arrival: ambulatory Limitations: no limitations History of Present Illness: HPI Narrative: I was called to the floor for a CODE BLUE called overhead. Upon arrival Dr. Weaver was present and was running the code. I remained to perform procedures as the code was directed by Dr. Weaver. Related Data: Home oxygen amount: 3 liters [facility] ED PFSH: Medical History (Updated 03/22/20 @ 22:36 by Daryl Weaver MD) Atrial fibrillation Combined systolic and diastolic congestive heart failure Coronary artery disease History of ST elevation myocardial infarction (STEMI) HTN (hypertension) Hyperlipidemia Hypertension ICD (implantable cardioverter-defibrillator) in place Ischemic cardiomyopathy COLEMAN (obstructive sleep apnea) Seizure disorder Sleep apnea Surgical History S/P appendectomy S/P CABG (coronary artery bypass graft) S/P hernia repair S/P PTCA (percutaneous transluminal coronary angioplasty) Family History Mother Cancer Other CAD (coronary artery disease) Social History Smoking and tobacco status: former smoker Second hand smoke exposure: Yes Alcohol intake: never History of recent travel: No Procedures Central Line Placement Right Femoral: Patient Placed on Monitor/Pulse Ox: Yes Central Line Prep: Povidone-Iodine 1% Central Line Lumen Inserted: triple Post Procedure: sutured in place, good blood return, all ports aspirated, flushed, capped and sterile dressing applied Patient Tolerated Procedure: well and no complications Complications: none Additional Comments: Procedure was performed while the patient had cardiac arrest. Maximal sterile precautions were taken given the situation. Intubation paralytic: Succinylcholine Mg Given: 100 Laryngoscope: Wilberto ET Tube Size: 8 ET Tube Uncuffed: Yes Tube Secured Depth (cm): 22 Tube Secured Location: teeth Tube Placement Confirmation: visualized tube passing through cords, equal breath sounds bilaterally, no breath sounds over epigastrium and confirmation by capnometry Patient Tolerated Procedure: well and no complications Intubation Complications: none Additional Comments: Intubation was performed during a brief period where the patient had a pulse and necessitated succinylcholine as he was biting down. Course Vital Signs: Vital signs: Vital Signs Temperature 98.8 F 03/22/20 20:56 Pulse Rate 120 H 03/23/20 00:05 Respiratory Rate 20 H 03/23/20 00:05 Blood Pressure 102/74 03/23/20 00:05 Pulse Oximetry 98 03/23/20 00:05 MDM - SOB/Dyspnea Lab Data: Labs: Lab Results 03/22/20 03/22/20 03/22/20 Range/Units 22:15 22:15 22:15 WBC 11.0 H (4.0-10.0) 10^3/ uL RBC 4.53 (4.1-5.3) 10^6/u L Hgb 12.2 (11.7-16.6) g/dL Hct 42.1 (42.0-52.0) % MCV 92.9 (80-94) fL MCH 26.9 L (28.0-34.0) pg MCHC 29.0 L (30.0-36.0) g/dL RDW 18.4 H (12.1-15.1) % Plt Count 198 (130-400) 10^3/c mm MPV 9.9 (7.4-10.4) fL Neut % (Auto) 81.8 % Lymph % (Auto) 7.7 % Dickenson % (Auto) 9.7 % Eos % (Auto) 0.2 % Baso % (Auto) 0.1 % Neut # (Auto) 8.97 H (1.8-7.7) 10^3/u L Lymph # (Auto) 0.9 (0.8-4.8) 10^3/u L Dickenson # (Auto) 1.1 H (0.2-0.9) 10^3/u L Eos # (Auto) 0.0 (0.0-0.8) 10^3/u L Baso # (Auto) 0.0 (0.0-0.1) 10^3/u L Nucleated RBC % (a uto) 0.4 % Nucleated RBCs # 0.0 /100WBC Sodium 136 (136-145) mmol/L Potassium 4.3 (3.5-5.1) mmol/L Chloride 99 (98-107) mmol/L Carbon Dioxide 22 (22-29) mmol/L Anion Gap 19.3 H (5-19) BUN 37 H (8-23) mg/dL Creatinine 1.2 (0.7-1.2) mg/dL GFR Calculation 60.0 L (90-130) mL/min Glucose 103 (65-115) mg/dL Calculated Osmolal ity 291 (285-295) mOsm/k g Calcium 8.9 (8.5-10.5) mg/dL Phosphorus (2.5-4.5) mg/dL Magnesium (1.7-2.3) mg/dL Total Bilirubin 1.9 H (0.15-1.2) mg/dL AST 38 (0-40) U/L ALT 31 (0-41) U/L Alkaline Phosphata se 113 (40-130) IU/L Troponin T Baselin e 59 H (0-15) ng/L NT-Pro-B Natriuret Pep (0-125) pg/mL Total Protein 6.0 L (6.6-8.7) g/dL Albumin 3.3 L (3.5-5.2) g/dL Globulin 2.7 (1.3-4.6) g/dL Procalcitonin (0-0.5) ng/mL 03/22/20 03/22/20 Range/Units 22:15 22:20 WBC (4.0-10.0) 10^3/ uL RBC (4.1-5.3) 10^6/u L Hgb (11.7-16.6) g/dL Hct (42.0-52.0) % MCV (80-94) fL MCH (28.0-34.0) pg MCHC (30.0-36.0) g/dL RDW (12.1-15.1) % Plt Count (130-400) 10^3/c mm MPV (7.4-10.4) fL Neut % (Auto) % Lymph % (Auto) % Dickenson % (Auto) % Eos % (Auto) % Baso % (Auto) % Neut # (Auto) (1.8-7.7) 10^3/u L Lymph # (Auto) (0.8-4.8) 10^3/u L Dickenson # (Auto) (0.2-0.9) 10^3/u L Eos # (Auto) (0.0-0.8) 10^3/u L Baso # (Auto) (0.0-0.1) 10^3/u L Nucleated RBC % (a uto) % Nucleated RBCs # /100WBC Sodium (136-145) mmol/L Potassium (3.5-5.1) mmol/L Chloride (98-107) mmol/L Carbon Dioxide (22-29) mmol/L Anion Gap (5-19) BUN (8-23) mg/dL Creatinine (0.7-1.2) mg/dL GFR Calculation (90-130) mL/min Glucose (65-115) mg/dL Calculated Osmolal ity (285-295) mOsm/k g Calcium (8.5-10.5) mg/dL Phosphorus 3.4 (2.5-4.5) mg/dL Magnesium 2.4 H (1.7-2.3) mg/dL Total Bilirubin (0.15-1.2) mg/dL AST (0-40) U/L ALT (0-41) U/L Alkaline Phosphata se (40-130) IU/L Troponin T Baselin e (0-15) ng/L NT-Pro-B Natriuret Pep 56331 H (0-125) pg/mL Total Protein (6.6-8.7) g/dL Albumin (3.5-5.2) g/dL Globulin (1.3-4.6) g/dL Procalcitonin 0.97 H (0-0.5) ng/mL Discharge Plan Discharge Patient Disposition: Admitted As Inpatient Admit Provider: Daryl Weaver Discharge Date/Time: 03/22/20 23:02 Coding Level of Care Code ED Boiler Coverer Helper for Krzysztof Casey
[2020-03-23 04:56] LABS: Glucose Point of Care 111 mg/dL (70-110)
--- NOTE | 2020-03-23 04:57 | PC.RESP ---
At 0247 I enter pt's room. PT's RR 51, SaO2 was 99%. Pt stated he can't breathe and needs a breathing tx. I left to go get his albuterol neb tx. Upon entering room, pt appeared pale, agonal breathing, and unable to arose. Dr. Ramirez is in room. Called a code. Code teams arrives and CPR initiated.
--- NOTE | 2020-03-23 14:35 | PC.NURSE ---
This functional tester typewriters gave patient belongings to Zahra Chapman, items included were clothes, shoes, wallet. Spoke with risk management and they stated to release items to her as she was listed on patients facesheet.
--- NOTE | 2020-03-27 09:15 | P.DES_ITS ---
Discharge Providers DDS Date of Admission: 03/22/20 22:32 Date Summary Completed: 04/02/20 Attending Provider at Admission: Daryl Weaver MD Time of : 03:32 Attending Provider at Discharge: Daryl Weaver MD Primary Care Provider: Earl NUNES Diagnoses Hospital Diagnoses (1) Combined systolic and diastolic congestive heart failure: (2) COPD (chronic obstructive pulmonary disease): (3) ICD (implantable cardioverter-defibrillator) in place: (4) Atrial fibrillation: (5) Pneumonia: (6) NSTEMI (non-ST elevated myocardial infarction): (7) Hypertension: (8) Hyperlipidemia: Reason for Visit Reason for Visit: d/a chest pain Summary Date and Time of Date of : 03/23/20 Time of : 03:32 Summary Summary: Nolan Jurado is a 69 year old male with a past medical history of CAD status post CABG, history of ICD placement, history of ischemic cardiomyopathy, mixed systolic and diastolic heart failure, last ejection fraction 30%, COPD, former smoker hypertension, hyperlipidemia, bilateral lower extremity edema, paroxysmal atrial fibrillation not on anticoagulation, sleep apnea, who presents to [facility] as a transfer from [facility] for complaints of shortness of breath. Patient states that for the last 2 weeks, he has felt more short of breath, short of breath with minimal exertion, productive cough, complains of bilateral lower extremity edema, orthopnea, paroxysmal nocturnal dyspnea, has been using Lasix 40 mg daily, also complains of chest pain with exertion, substernal, nonradiating, no fevers, no chills, no nausea, no vomiting, no known exposure to COVID-19. Patient was admitted for acute respiratory failure secondary to acute systolic and diastolic CHF exacerbation and COPD exacerbation, receiving Lasix therapy, echocardiogram, fluid restrictions, daily weights, oxygen therapy, Solu-Medrol 40 every 12 hours, ipratropium, and for his NSTEMI serial troponin monitoring, monitoring his EKGs, monitoring for chest pain. Patient[place] BNP was 11626, creatinine 1.2, baseline troponin 59, EKG showed sinus tachycardia, nonspecific ST-T wave changes. During my examination, patient's breathing had improved, no chest pain, no lightheaded, no dizziness, no nausea, no vomiting he was doing well on 3 to 4 L nasal cannula. At 2:50 AM, 03/23/2020, nurses paged me as patient was not breathing appropriately, not responding, on my assessment, patient was not responding, alert oriented x0, apneic, I could not detect a carotid pulse, telemetry monitoring showed sinus tachycardia heart rates 100s to 120, CODE BLUE was called, pulseless electrical activity of the heart. Likely patient developed acute flash pulmonary edema, acute hypoxic respiratory failure. Patient received CPR, epinephrine twice, 2 AMP of bicarb, was intubated, started on Levophed drip, vasopressin drip, he alternated between asystole and pulseless electrical activity the heart, he lost his pulse requiring resuming of CPR a couple of times, his was notified, after 42 minutes, patient went back into asystole, time of 332 on 03/23/2020. Combined systolic and diastolic congestive heart failure: -Has a history of ischemic ischemic cardiomyopathy, mixed systolic and diastolic, last EF 30% -, No pulmonary emboli -Has received a total of [address] angiogram of the chest and chest x- ray from outside hospital showed pulmonary edema PLAN: -Admit to cardiac stepdown unit -Telemetry monitoring -Monitor creatinine, continue Lasix 40 mg IV twice daily, fluid restrictions, daily weights -We will order cardiac echocardiogram Status: Acute (2) COPD (chronic obstructive pulmonary disease): -3 L oxygen dependent -Continue ipratropium every 6 hours scheduled -Continue Solu-Medrol 40 every 12 hours Status: Acute (3) ICD (implantable cardioverter-defibrillator) in place: Status: Acute (4) Atrial fibrillation: -Paroxysmal atrial fibrillation, not on anticoagulation, telemetry monitoring ordered Status: Acute (5) Pneumonia: -CT angiogram showed findings concerning for left lower lobe pneumonia, white blood cell 12.6, Covid PCR sent, influenza negative -Continue Rocephin and azithromycin -Blood cultures, sputum cultures Status: Acute (6) NSTEMI (non-ST elevated myocardial infarction): -Has complaints of chest pain -Troponin at [facility] was 65, 2 hour 57, EKG at their facility showed sinus tachycardia, in the ambulance ride over, there was some concerns for an abnormal heart rhythm, seem like sinus tachycardia to me, EKG went he arrived in the emergency room showed some ST depressions in the lateral leads, no active chest pain PLAN: -Continue aspirin, statin -Serial EKGs, serial troponins, telemetry monitoring, monitor for EKGs, ordered cardiac echocardiogram Status: Acute (7) Hypertension: Status: Acute (8) Hyperlipidemia: Status: Acute Additional Data Advance directives?: No Discharge Plan Discharge Patient Disposition: Prescriptions: No Action albuterol sulfate [ProAir HFA] 90 mcg/actuation HFA aerosol inhaler 2 puff INHALATION Q6H PRN (Reason: Shortness Of Breath) RF: 0 simvastatin 40 mg tablet 40 mg PO QDAY RF: 0 mirtazapine 15 mg tablet 15 mg PO BEDTIME RF: 0 clopidogrel [Plavix] 75 mg tablet 75 mg PO QDAY RF: 0 nitroglycerin [Nitrostat] 0.4 mg tablet, sublingual 0.4 mg SUBLINGUAL DIRECTED RF: 0 potassium chloride [Klor-Con M20] 20 mEq tablet,ER particles/crystals 10 meq PO QDAY RF: 0 aspirin 325 mg tablet 325 mg PO DAILY RF: 0 budesonide-formoterol 160-4.5 mcg/actuation HFA aerosol inhaler 2 puff INHALATION BID RF: 0 Narcan 4 mg/actuation spray,non-aerosol 4 mg INTRANASAL Q2M RF: 0 hydrocodone-acetaminophen 5-325 mg tablet 1 tab PO BID PRN (Reason: Pain) RF: 0 ondansetron HCl 4 mg tablet 4 mg PO Q6H RF: 0 metoprolol succinate 25 mg tablet extended release 24 hr 12.5 mg PO BID RF: 0 dexamethasone 6 mg tablet 6 mg PO DAILY Qty: 7 RF: 0 furosemide 40 mg Tablet 40 mg PO DAILY RF: 0 DS Attestations Time Spent in /Discharge Care*: less than 30 min Quality - AMI: AMI present?: No Quality - Stroke: CVA present?: No Symptom Onset Unknown: No Quality - VTE: VTE present?: No Deep Vein Thrombosis/Pulmonary Embolism Present on Admission: No Coding Level of Care Code Acute Aviation Support Equipment Repairer for Chg Fwd Diagnoses Combined systolic and diastolic congestive heart failure I50.40 COPD (chronic obstructive pulmonary disease) J44.9 ICD (implantable cardioverter-defibrillator) in place Z95.810 Atrial fibrillation I48.91 Pneumonia J18.9 NSTEMI (non-ST elevated myocardial infarction) I21.4 Hypertension I10 Hyperlipidemia E78.5
== END 2020-03-23 06:24 | disposition expired ==
LOC: ER 21:15 → CSU 22:42 → ICU 03-23 03:32 → CSU 03-23 03:35
PROVIDERS: Admitting Provider Family Medicine; Emergency Provider Emergency Medicine; PCP Family Medicine; Visit Provider Family Medicine
DX: I21.4 Non-ST elevation (NSTEMI) myocardial infarction (principal); J18.9 Pneumonia, unspecified organism; I50.41 Acute combined systolic (congestive) and diastolic (congestive) heart failure; J96.00 Acute respiratory failure, unspecified whether with hypoxia or hypercapnia; J44.0 Chronic obstructive pulmonary disease with (acute) lower respiratory infection; J44.1 Chronic obstructive pulmonary disease with (acute) exacerbation; E78.5 Hyperlipidemia, unspecified; I11.0 Hypertensive heart disease with heart failure; Z95.810 Presence of automatic (implantable) cardiac defibrillator; I25.10 Atherosclerotic heart disease of native coronary artery without angina pectoris; Z95.1 Presence of aortocoronary bypass graft; I25.5 Ischemic cardiomyopathy; Z87.891 Personal history of nicotine dependence; I48.0 Paroxysmal atrial fibrillation; G47.30 Sleep apnea, unspecified; Z79.02 Long term (current) use of antithrombotics/antiplatelets; Z79.82 Long term (current) use of aspirin; I25.2 Old myocardial infarction; G40.909 Epilepsy, unspecified, not intractable, without status epilepticus
CPT/HCPCS: 12345; 31500; 36415; 36416; 36556; 71045; 80053; 81001; 82962; 83735; 83880; 84100; 84145; 84484; 85025; 93005; 94664; 96375; 99282; 99291; C1751; J0171; J0330; J0456; J0696; J1940; J2405; J2920; J7050